=== PATIENT | male | born 1960 | race Caucasian/White ===

== ENCOUNTER 2019-02-21 21:37 | Emergency (ER) | payer OTHER ==
[~2019-02-21] VITALS: Ht 182.9 cm; Wt 68.0 kg
[2019-02-21 21:59] LABS: BASOPHILS 1.1 % (0.0-2.0); EOSINOPHILS 1.9 % (0.0-3.0); HEMATOCRIT 43.8 % (42.0-52.0); HEMOGLOBIN 14.8 gm/dL (14.0-18.0); LYMPHOCYTES 49.1 % (24.0-44.0); MCH 34.2 pg (26.0-34.0); MCHC 33.8 g/dL (28.0-37.0); MCV 101.3 fL (80.0-100.0); MONOCYTES 9.4 % (1.0-8.0); PLATELET COUNT 162 thou/uL (150-400); POLYS 38.5 % (36.0-66.0); RBC 4.32 mil/uL (4.50-6.00); WBC 5.3 thou/uL (4.0-11.0)
[2019-02-21 22:08] LABS: ANION GAP 14 mmol/L (7-16); BUN 8 mg/dL (7-18); CALCIUM 8.7 mg/dL (8.5-10.1); CHLORIDE 106 mmol/L (98-107); CO2 23 mmol/L (21-32); CREATININE 0.9 mg/dL (0.7-1.3); GLUCOSE 109 mg/dL (74-106); POTASSIUM 3.8 mmol/L (3.5-5.1); SODIUM 143 mmol/L (136-145)
[2019-02-21 22:18] LABS: ALBUMIN 4.3 g/dL (3.4-5.0); LIPASE 110 U/L (73-393); SGOT 24 U/L (15-37); SGPT 31 U/L (30-65); TOTAL BILIRUBIN 0.4 mg/dL (<0.1-1.0); TOTAL PROTEIN 8.1 g/dL (6.4-8.2); TROPONIN-I <0.06 ng/mL (<0.06)
[2019-02-21 22:48] LABS: SALICYLATE 3.5 mg/dL (2.8-20.0)
[2019-02-21 23:12] LABS: URINE BILIRUBIN NEGATIVE (Negative); URINE BLOOD NEGATIVE (Negative); URINE CLARITY CLEAR; URINE COLOR YELLOW; URINE GLUCOSE-RANDOM* NEGATIVE (Negative); URINE KETONES NEGATIVE (Negative); URINE LEUKOCYTES-REFLEX NEGATIVE (Negative); URINE NITRITE-REFLEX NEGATIVE (Negative); URINE PROTEIN (DIPSTICK) NEGATIVE (Negative); URINE SPECIFIC GRAVITY <= 1.005 (1.005-1.035); URINE UROBILINOGEN 0.2 E.U./dl (0.2-1.0)
[2019-02-21 23:16] LABS: AMP/METHAMP Negative (Negative); BARBITURATES Negative (Negative); BENZODIAZEPINES Negative (Negative); COCAINE Negative (Negative); METHADONE Negative (Negative); OPIATES Negative (Negative); PCP Negative (Negative)
[2019-02-22 08:53] VITALS: BP 97/50
--- NOTE | 2019-02-22 09:51 | EKG ---
[address] [place] [address] ELECTROCARDIOGRAM REPORT Name: WAYLON MURPHY Room #: DEP Nael#: [id number] Admission: 02/21/19 Attend Phys: Discharge: 02/22/19 Date of : 64 Report #: [id number] THIS REPORT FOR: //name// [facility] ED Test Date: 2019-02-22 Test Time: 00:10:41 Pat Name: WAYLON MURPHY Department: Room: Gender: M Hospital Nursing Assistant: PRESLEY : 1960 Requested By: Aaliyah Yepez Order Number: [id number] MD: Amrik Hernandez Measurements Intervals Eloy Rate: 62 P: 75 AK: 190 QRS: 67 QRSD: 114 T: 74 QT: 424 QTc: 431 Interpretive Statements Sinus rhythm Borderline intraventricular conduction delay No previous ECG available for comparison Electronically Signed On 02-22-2019 9:51:20 COMPOSITE MECHANIC by Armik Hernandez [email or web address] <ELECTRONICALLY SIGNED> By: Amrik Hernandez MD, [facility] 02/22/19 0951 0010 0010 Amrik Hernandez MD, FACC /EPI
== END 2019-02-22 09:23 | disposition home or self-care (01) ==
LOC: ER 21:37
PROVIDERS: Physician Assistant
DX: S00.83XA Contusion of other part of head, initial encounter (principal); S50.02XA Contusion of left elbow, initial encounter; F10.129 Alcohol abuse with intoxication, unspecified; Y90.8 Blood alcohol level of 240 mg/100 ml or more; Y04.0XXA Assault by unarmed brawl or fight, initial encounter; Y93.89 Activity, other specified; Y92.89 Other specified places as the place of occurrence of the external cause; Y99.8 Other external cause status